=== PATIENT | female | born 1945 | race Caucasian/White ===

== ENCOUNTER 2020-03-14 08:51 | Day surgery (SDC) | payer MEDICARE, MEDICAID ==
[2020-03-14] VITALS (9 sets, daily range): BP systolic 122–144; BP diastolic 53–92
[~2020-03-14] VITALS: Ht 170.2 cm; Wt 82.6 kg
[2020-03-14] MEDS ORDERED: METO25TA6 PO (09:47)
[2020-03-14] MEDS ORDERED: HYDR-3965 PO (09:47)
[2020-03-14] MEDS ORDERED: LORazepam 2 mg/ml vial IV ONE (11:50)
[2020-03-14] MEDS ORDERED: LORazepam 2 mg/ml vial ONE (11:54)
[2020-03-14] MEDS ORDERED: fentaNYL/PF 50MCG/1 ML 2ML syringe ONE (12:14)
[2020-03-14] MEDS ORDERED: ondansetron/PF 4mg/2ml inj ONE (12:38)
--- NOTE | 2020-03-14 12:46 | NUR ---
Gave 4mg IV Zofran post procedure for nausea. Patient doing well upon arrival to [facility]. Report given to Sunday JULIO. Addendum: 03/14/20 at 1247 by Anne-Marie Frances RN Amended: Links added.
== END 2020-03-14 13:25 | disposition home or self-care (01) ==
LOC: SSTAY O 08:51
PROVIDERS: ATTEND Radiology Diagnostic Radiology
DX: R22.2 Localized swelling, mass and lump, trunk (principal); C76.1 Malignant neoplasm of thorax; Z20.828 Contact with and (suspected) exposure to other viral communicable diseases; F32.9 Major depressive disorder, single episode, unspecified; F12.90 Cannabis use, unspecified, uncomplicated; Z85.3 Personal history of malignant neoplasm of breast; Z90.49 Acquired absence of other specified parts of digestive tract; Z90.710 Acquired absence of both cervix and uterus; Z98.890 Other specified postprocedural states; Z88.8 Allergy status to other drugs, medicaments and biological substances; Z88.5 Allergy status to narcotic agent
CPT/HCPCS: 20206; 36415; 77012; 87635; J2060; J2405; J3010

== ENCOUNTER → 2021-12-14 | Outpatient (CLI) | payer MEDICARE, MEDICAID ==
[~2021-12-14] MED LIST: HYDR-3965 PO; LOP25T PO
== END | disposition home or self-care (01) ==
LOC: RAD 07:37
PROVIDERS: ATTEND Psychiatry & Neurology Neurology
DX: R55 Syncope and collapse (principal)
CPT/HCPCS: 95816